=== PATIENT | female | born 1950 | race Two or more races ===

== ENCOUNTER → 2018-11-08 | Outpatient (CLI) | payer OTHER | END | disposition home or self-care (01) | LOC: RAD 14:03 → LAB 14:03 | DX: J45.31 Mild persistent asthma with (acute) exacerbation (principal); J11.1 Influenza due to unidentified influenza virus with other respiratory manifestations; J15.8 Pneumonia due to other specified bacteria ==

== ENCOUNTER 2020-10-26 08:00 | Outpatient (CLI) | payer OTHER | END 2020-10-26 08:30 | disposition home or self-care (01) | LOC: PPH VACUNA 08:00 | PROVIDERS: ATTEND Emergency Medicine Pediatric Emergency Medicine | DX: Z23 Encounter for immunization (principal) ==